=== PATIENT | female | born 2005 | race Caucasian/White ===

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

== ENCOUNTER → 2023-01-26 | Outpatient (CLI) | payer OTHER ==
[~2023-01-26] MED LIST changes: +CRUTCH4 XX
[2023-01-29 00:08] LABS: CHLAMYDIA TRACHOMATIS, NAA Negative (Negative)
== END | disposition home or self-care (01) ==
LOC: LAB 18:29 → LAB SHORT 18:29
PROVIDERS: Advanced Practice Midwife
DX: Z11.3 Encounter for screening for infections with a predominantly sexual mode of transmission (principal)
CPT/HCPCS: 87491; 87591

== ENCOUNTER → 2024-03-11 | Outpatient (CLI) | payer OTHER | END | disposition home or self-care (01) | LOC: LAB SHORT 14:16 → LAB 14:16 | PROVIDERS: Advanced Practice Midwife | DX: Z01.419 Encounter for gynecological examination (general) (routine) without abnormal findings (principal) | CPT/HCPCS: G0123 ==

== ENCOUNTER 2024-10-31 04:15 | Emergency (ER) | payer OTHER ==
[~2024-10-31] VITALS: Ht 154.9 cm; Wt 68.0 kg
[2024-10-31] MEDS ORDERED: Ondansetron HCl 2 MG / ML 2ML Vial IV PRN (04:55)
[2024-10-31 05:00] LABS: BASOPHILS ABSOLUTE AUTO 0.03 K/mm3 (0.00-0.23); BASOPHILS PERCENT AUTO 0 % (0-2); EOSINOPHILS ABSOLUTE AUTO 0.23 K/mm3 (0.00-0.68); EOSINOPHILS PERCENT AUTO 1 % (0-6); Hematocrit 43.4 % (33.0-51.0); Hemoglobin 14.9 g/dL (11.5-16.0); IMMATURE GRAN ABSOLUTE AUTO 0.07 K/mm3 (0.00-0.10); IMMATURE GRAN PERCENT AUTO 0 % (0-1); LYMPHOCYTES ABSOLUTE AUTO 1.05 K/mm3 (0.84-5.20); LYMPHOCYTES PERCENT AUTO 6 % (21-46); MONOCYTES ABSOLUTE AUTO 0.93 K/mm3 (0.16-1.47); MONOCYTES PERCENT AUTO 6 % (4-13); Mean Corpuscular HGB 28.7 pg (26.0-34.0); Mean Corpuscular HGB Conc 34.3 g/dL (31.5-36.5); Mean Corpuscular Volume 84 fL (80-100); Mean Platelet Volume 9.1 fL (9.1-12.4); NEUTROPHILS ABSOLUTE AUTO 14.22 K/mm3 (1.96-9.15); NEUTROPHILS PERCENT AUTO 86 % (41-73); Platelet Count 398 K/mm3 (150-400); RDW Coefficient Variation 12.8 % (11.7-14.2); RDW Standard Deviation 38.8 fL (35.1-46.3); White Blood Cell Count 16.53 K/mm3 (4.00-11.30)
[2024-10-31 05:38] LABS: Albumin, Blood 3.9 g/dL (3.4-5.0); Albumin/Globulin Ratio 0.9 (0.8-1.8); Bilirubin, Total 0.5 mg/dL (0.1-1.0); Bun/Creatinine Ratio 13.8 (12.0-20.0); Calcium, Blood 9.6 mg/dL (8.5-10.1); Creatinine, Blood 0.87 mg/dL (0.40-1.00); Globulin, Blood 4.3 g/dL (2.2-4.0); Total Protein, Blood 8.2 g/dL (6.4-8.2)
[2024-10-31] MEDS ORDERED: Ketorolac Tromethamine 30mg Vial IV ONE (05:50)
[2024-10-31] MEDS ORDERED: NS 1,000 ML IV SCH (05:50)
[2024-10-31] MEDS ORDERED: Mag Hydrox/AL Hydrox/Simeth 30 ML UDC PO ONE (06:35)
[2024-10-31 06:45] LABS: Source, Urine Clean Catch
[2024-10-31 06:50] LABS: Appearance, Urine Clear (Clear); Bilirubin, Urine Neg (Neg); Blood, Urine Neg (Neg); Color, Urine Yellow (P-Yellow); Glucose Qualitative, Urine Neg (Neg); Ketones, Urine 1+ (Neg); Leukocyte Esterase, Urine 1+ (Neg); Nitrite, Urine Neg (Neg); Protein, Urine 1+ (Neg); Specific Gravity, Urine 1.015 (1.003-1.022); Urobilinogen, Urine 1+ (Normal)
[2024-10-31 06:59] LABS: Bacteria Mod /hpf; Mucus Mod (0-Heavy); Red Blood Cells, Urine 0-2 /hpf (0-2); Squamous Epithelial Cells Mod /hpf (Few)
[2024-10-31 08:56] LABS: CORONAVIRUS COVID-19 AG Negative (NEGATIVE); INFLUENZA A AG Negative (NEGATIVE); INFLUENZA B AG Negative (NEGATIVE)
[2024-10-31 09:23] VITALS: BP 92/51
[2024-10-31] MEDS ORDERED: Lactated Ringer's 1,000 ML IV ONE (09:40)
[2024-10-31] MEDS ORDERED: DiphenhydrAMINE HCl 50 MG/ML 1ML Vial IV ONE (10:10)
[2024-10-31] MEDS ORDERED: Metoclopramide HCl 5MG / ML 2ML Vial IV ONE (10:10)
[2024-10-31] MEDS ORDERED: METO10 PO (10:52)
[2024-10-31] MEDS ORDERED: ONDA4ODT MM (10:52)
[2024-10-31] MEDS ORDERED: DICY20 PO (10:52)
[2024-10-31] MEDS ORDERED: PROM12.5S PR (10:52)
== END 2024-10-31 11:08 | disposition home or self-care (01) ==
LOC: ER 04:15
PROVIDERS: Emergency Medicine; Student in an Organized Health Care Education/Training Program
DX: A08.4 Viral intestinal infection, unspecified (principal); E86.0 Dehydration; Z88.5 Allergy status to narcotic agent
CPT/HCPCS: 74177; 80053; 81001; 83690; 84703; 85025; 87077; 87086; 87186; 87428-QW; 96361; 96374-59; 96375; 99284-25; A9270; J1200; J1885; J2405; J2765; J7030; J7120; Q9967

== ENCOUNTER 2025-03-18 04:51 | Emergency (ER) | payer OTHER ==
[~2025-03-18] VITALS: Ht 160 cm; Wt 65.8 kg
[~2025-03-18 04:51] MED LIST changes: +DICY20 PO; +METO10 PO; +ONDA4ODT MM; +PROM12.5S PR
[2025-03-18 05:30] VITALS: BP 123/77
== END 2025-03-18 05:40 | disposition home or self-care (01) ==
LOC: ER 04:51
PROVIDERS: Emergency Medicine
DX: S61.238A Puncture wound without foreign body of other finger without damage to nail, initial encounter (principal); Z77.21 Contact with and (suspected) exposure to potentially hazardous body fluids; Z88.5 Allergy status to narcotic agent; Z79.899 Other long term (current) drug therapy; W46.1XXA Contact with contaminated hypodermic needle, initial encounter
CPT/HCPCS: 84460